=== PATIENT | female | born 1945 | race African-American/Black ===

== ENCOUNTER 2017-12-02 09:27 | Outpatient (CLI) | payer MEDICARE ==
[2017-12-02] MEDS ORDERED: Iopamidol 370 76% 100 ML VIAL ONE (16:29)
== END 2017-12-02 09:28 | disposition home or self-care (01) ==
LOC: BICCT 09:27
PROVIDERS: ATTEND Nurse Practitioner Family
DX: R10.9 Unspecified abdominal pain (principal); R93.3 Abnormal findings on diagnostic imaging of other parts of digestive tract
CPT/HCPCS: 74177

== ENCOUNTER 2017-12-21 07:53 | Outpatient (CLI) | payer MEDICARE | END 2017-12-21 07:54 | disposition home or self-care (01) | LOC: BICMAMMO 07:53 | PROVIDERS: ATTEND Specialist | DX: Z12.31 Encounter for screening mammogram for malignant neoplasm of breast (principal); M81.0 Age-related osteoporosis without current pathological fracture; M85.852 Other specified disorders of bone density and structure, left thigh; Z80.3 Family history of malignant neoplasm of breast | CPT/HCPCS: 77063; 77067; 77080 ==

== ENCOUNTER 2018-04-21 07:46 | Emergency (ER) | payer MEDICARE ==
--- NOTE | 2018-04-21 08:41 | RAD ---
CHEST 1 VIEW: Date: 04/21/18 HISTORY: Dyspnea. COMPARISON: 03/06/17. FINDINGS: Cardiac silhouette magnified by projection. Pulmonary vasculature is unremarkable. Mediastinum is mid line. No confluent air space consolidation or evidence of pneumothorax. Minimal bibasilar atelectasis . IMPRESSION: No active cardiopulmonary abnormalities are demonstrated. POS: [facility]
[2018-04-21] MEDS ORDERED: Ondansetron ODT 4 MG TAB ONE (08:43)
[2018-04-21 09:18] LABS: Bilirubin Negative (Negative); Blood, Urine Negative (Negative); Clarity CLOUDY (Clear); Glucose, Urine (Dipstick) Negative (Negative); Leukocyte Negative (Negative); Nitrite Negative (Negative); Protein, Urine (Dipstick) Trace mg/dL (Neg-Trace); Specific Gravity, Urine 1.018 (1.002-1.036); Urobilinogen 0.2 mg/dL (0.2-1.0); pH, Urine 7.5 (5.0-9.0)
[2018-04-21 09:21] LABS: ALT (SGPT) 29 U/L (8-55); AST (SGOT) 35 U/L (5-34); Albumin 4.2 g/dL (3.4-4.8); Alkaline Phosphatase 76 U/L (40-150); Anion Gap 14 mmol/L (10-20); BUN (Urea Nitrogen) 10 mg/dL (9.8-20.1); Bilirubin, Total 0.9 mg/dL (0.2-1.2); Calc. Creatinine Clearance 0 mL/min (70-130); Calcium 9.1 mg/dL (7.8-10.44); Carbon Dioxide 26 mmol/L (23-31); Chloride 104 mmol/L (98-107); Estimated GFR-MDRD 83; Globulin 4.4 g/dL (2.4-3.5); Glucose 122 mg/dL (83-110); Potassium 4.1 mmol/L (3.5-5.1); Protein, Total 8.6 g/dL (6.0-8.3); Sodium 140 mmol/L (136-145)
[2018-04-21 09:25] LABS: CKMB 2.4 ng/mL (0-6.6); Troponin I Less than 0.010 ng/mL (< 0.028)
[2018-04-21 09:41] LABS: Hemoglobin 15.7 g/dL (12.0-16.0); Lymphocytes 22 % (21-51); MDiff Complete? YES; Mean Corpuscular HGB CONC 33.2 g/dL (32.0-36.0); Mean Corpuscular Hemoglobin 31.4 pg (27.0-31.0); Mean Corpuscular Volume 94.5 fl (81.0-99.0); Mean Platelet Volume 8.9 fL (7.4-10.4); Monocytes 6 % (0-10); Neutrophil 67 % (42-75); PLT Morphology Comment PLT clumps seen-ADEQ; RBC Morphology Normal; Reactive Lymphocytes 5 % (0-10); White Blood Cell (WBC) Count 5.5 thou/uL (4.8-10.8)
== END 2018-04-21 11:07 | disposition home or self-care (01) ==
LOC: ERS 07:46
DX: R11.2 Nausea with vomiting, unspecified (principal); I10 Essential (primary) hypertension; F17.210 Nicotine dependence, cigarettes, uncomplicated
CPT/HCPCS: 36415; 71045; 80053; 81003; 82553; 84443; 84484; 85025; 93005; Q0162

== ENCOUNTER 2018-04-22 12:43 | Emergency (ER) | payer MEDICARE ==
[2018-04-22] MEDS ORDERED: hydrALAZINE 20 MG/ML VIAL ONE ×2 (13:15→13:41)
[2018-04-22] MEDS ORDERED: traMADol HCl 50 MG TAB ONE (13:40)
--- NOTE | 2018-04-22 13:55 | RAD ---
PORTABLE CHEST 1 VIEW: Date: 04/22/18 Time: 1250 hours HISTORY: Headache, hypertension. FINDINGS: Comparison made with exam of 04/21/18. The heart size is borderline. The aorta is tortuous. The lungs are expanded without focal areas of co nsolidation, pneumothorax, or pleural effusions. IMPRESSION: No radiographic evidence of acute cardiopulmonary process. POS: [facility]
[2018-04-22] MEDS ORDERED: hydrALAZINE 10 MG TAB PO SCH (14:00)
--- NOTE | 2018-04-22 14:00 | CT ---
NONCONTRAST CT HEAD: Date: 04/22/18 HISTORY: Headache and hypertension. Pounding headache. COMPARISON: None available. FINDINGS: There is decreased attenuation of the periventricular white matter, which is nonspecific but likely r eflective of chronic small vessel ischemic changes. There is no evidence of an acute cortical infarct ion, hemorrhage, mass effect, or midline shift. Mild cerebral volume loss is present. The ventricular system is normal in size, shape, and position. Visualized paranasal sinuses and mastoid air cells ar e clear. Calvarial structures are intact. IMPRESSION: 1. No acute intracranial abnormality is demonstrated. 2. Chronic small vessel ischemic changes and cerebral volume loss. POS: [facility]
[2018-04-22 14:31] LABS: #Lymphocytes 1.5 thou/uL (1.20-3.40); #Monocytes 0.3 thou/uL (0.11-0.59); #Neutrophils 3.3 thou/uL (1.40-6.50); %Basophils 0.1 % (0.0-1.0); %Eosinophils 0.2 % (0.0-10.0); %Monocytes 6.7 % (0.0-10.0); %Neutrophils 63.1 % (42.0-75.0); Hemoglobin 15.6 g/dL (12.0-16.0); Mean Corpuscular HGB CONC 32.6 g/dL (32.0-36.0); Mean Corpuscular Hemoglobin 30.9 pg (27.0-31.0); Mean Corpuscular Volume 94.6 fl (81.0-99.0); Mean Platelet Volume 7.6 fL (7.4-10.4); Platelet Count 147 thou/uL (130-400); RBC Distribution Width 12.7 % (11.5-14.5); Red Blood Cell (RBC) Count 5.06 mill/uL (4.20-5.40); White Blood Cell (WBC) Count 5.2 thou/uL (4.8-10.8)
[2018-04-22 14:51] LABS: ALT (SGPT) 28 U/L (8-55); AST (SGOT) 33 U/L (5-34); Albumin 4.1 g/dL (3.4-4.8); Alkaline Phosphatase 76 U/L (40-150); Anion Gap 15 mmol/L (10-20); BUN (Urea Nitrogen) 10 mg/dL (9.8-20.1); Bilirubin, Total 1.3 mg/dL (0.2-1.2); Calc. Creatinine Clearance 0 mL/min (70-130); Calcium 9.3 mg/dL (7.8-10.44); Carbon Dioxide 25 mmol/L (23-31); Chloride 102 mmol/L (98-107); Estimated GFR-MDRD 79; Globulin 4.3 g/dL (2.4-3.5); Glucose 90 mg/dL (83-110); Potassium 4.1 mmol/L (3.5-5.1); Protein, Total 8.4 g/dL (6.0-8.3); Sodium 138 mmol/L (136-145)
[2018-04-22 14:56] LABS: CKMB 2.3 ng/mL (0-6.6); Troponin I Less than 0.010 ng/mL (< 0.028)
== END 2018-04-22 15:06 ==
LOC: ERS 12:43
DX: R51 Headache (principal); I10 Essential (primary) hypertension; F17.210 Nicotine dependence, cigarettes, uncomplicated
CPT/HCPCS: 36415; 70450; 71045; 80053; 82553; 84484; 85025; 93005; J0360

== ENCOUNTER 2018-10-11 12:07 | Emergency (ER) | payer MEDICARE | END 2018-10-11 12:26 | disposition left against medical advice (07) | LOC: ERS 12:07 | DX: Z53.21 Procedure and treatment not carried out due to patient leaving prior to being seen by health care provider (principal) ==

== ENCOUNTER 2019-05-29 08:19 | Emergency (ER) | payer MEDICARE ==
[2019-05-29 09:46] LABS: #Basophils 0.1 thou/uL (0.0-0.2); #Lymphocytes 2.2 thou/uL (1.20-3.40); #Monocytes 0.5 thou/uL (0.11-0.59); #Neutrophils 4.2 thou/uL (1.40-6.50); %Basophils 1.3 % (0.0-1.0); %Eosinophils 0.3 % (0.0-10.0); %Lymphocytes 31.4 % (21.0-51.0); %Monocytes 7.1 % (0.0-10.0); %Neutrophils 59.9 % (42.0-75.0); Mean Corpuscular HGB CONC 32.3 g/dL (32.0-36.0); Mean Corpuscular Hemoglobin 31.5 pg (27.0-31.0); Mean Corpuscular Volume 97.3 fL (78.0-98.0); Mean Platelet Volume 8.9 fL (7.4-10.4); Platelet Count 137 thou/uL (130-400); Red Blood Cell (RBC) Count 4.45 mill/uL (4.20-5.40)
[2019-05-29 09:56] LABS: ALT (SGPT) 33 U/L (8-55); AST (SGOT) 33 U/L (5-34); Albumin 3.8 g/dL (3.4-4.8); Alkaline Phosphatase 55 U/L (40-150); Anion Gap 13 mmol/L (10-20); BUN (Urea Nitrogen) 19 mg/dL (9.8-20.1); Bilirubin, Total 0.8 mg/dL (0.2-1.2); Calc. Creatinine Clearance 0 mL/min (70-130); Calcium 9.9 mg/dL (7.8-10.44); Carbon Dioxide 26 mmol/L (23-31); Chloride 104 mmol/L (98-107); Estimated GFR-MDRD 73; Globulin 3.7 g/dL (2.4-3.5); Glucose 92 mg/dL (83-110); Lipase 29 U/L (8-78); Potassium 3.7 mmol/L (3.5-5.1); Protein, Total 7.5 g/dL (6.0-8.3); Sodium 139 mmol/L (136-145)
--- NOTE | 2019-05-29 10:41 | CT ---
CT abdomen and pelvis with IV contrast HISTORY: Left upper quadrant pain. COMPARISON: 12/02/2017. FINDINGS: Mild linear atelectasis at the lung bases. Gallbladder surgically absent. Common bile duct now upper limits of normal at 1.1 cm. No filling defects are apparent. The spleen and kidneys have a normal appearance. No enlarged lymph nodes or free fluid. Small hiatal hernia. Urinary bladder is intact. Prominent degenerative changes of the lumbar spine. Small pocket of gas lies immediately posterior to the L4-5 disc space. IMPRESSION: No acute abnormalities of the left upper quadrant to explain pain. Status post cholecystectomy. Chronic-type findings are stable. Small hiatal hernia. Posterior disc herniation at the L4-5 level of the lumbar spine.
[2019-05-29] MEDS ORDERED: ISOVUE-370 76%-LOCM 1 ML ONE (13:40)
== END 2019-05-29 10:49 | disposition home or self-care (01) ==
LOC: ERS 08:19
DX: R07.81 Pleurodynia (principal); R16.0 Hepatomegaly, not elsewhere classified; I10 Essential (primary) hypertension; Z79.899 Other long term (current) drug therapy
CPT/HCPCS: 36415; 74177; 80053; 83690; 85025; Q9966

== ENCOUNTER 2019-07-05 15:37 | Emergency (ER) | payer MEDICARE ==
--- NOTE | 2019-07-05 16:05 | RAD ---
Exam: Chest one view HISTORY:Chest pain Comparison: 04/22/2018 FINDINGS: Cardiac silhouette: Normal Aorta: Atherosclerosis of the aortic knob Pulmonary vessels: Slightly prominent Costophrenic angles: Clear LUNGS: Diffuse hazy opacities, without consolidation/air bronchograms Pneumothorax: None Osseous abnormalities: None IMPRESSION: 1. Diffuse hazy opacities without consolidation or bronchograms. There is a presumed component of vol ume overload. Possibility of a infiltrate cannot be excluded. Better evaluation with a 2 view chest radiograph is recommended.
[2019-07-05 16:26] LABS: #Basophils 0.1 thou/uL (0.0-0.2); #Eosinphils 0.1 thou/uL (0.0-0.7); #Lymphocytes 2.1 thou/uL (1.20-3.40); #Monocytes 0.5 thou/uL (0.11-0.59); %Eosinophils 1.3 % (0.0-10.0); %Lymphocytes 36.2 % (21.0-51.0); %Monocytes 8.9 % (0.0-10.0); %Neutrophils 52.6 % (42.0-75.0); Hemoglobin 13.4 g/dL (12.0-16.0); Mean Corpuscular HGB CONC 33.4 g/dL (32.0-36.0); Mean Corpuscular Hemoglobin 32.5 pg (27.0-31.0); Mean Corpuscular Volume 97.4 fL (78.0-98.0); Mean Platelet Volume 7.5 fL (7.4-10.4); Platelet Count 160 thou/uL (130-400); RBC Distribution Width 11.8 % (11.5-14.5); Red Blood Cell (RBC) Count 4.12 mill/uL (4.20-5.40); White Blood Cell (WBC) Count 5.8 thou/uL (4.8-10.8)
[2019-07-05 16:46] LABS: ALT (SGPT) 33 U/L (8-55); AST (SGOT) 33 U/L (5-34); Albumin 3.9 g/dL (3.4-4.8); Alkaline Phosphatase 64 U/L (40-150); Anion Gap 13 mmol/L (10-20); BUN (Urea Nitrogen) 14 mg/dL (9.8-20.1); Bilirubin, Total 0.5 mg/dL (0.2-1.2); CK (CPK) 107 U/L (29-168); Calc. Creatinine Clearance 0 mL/min (70-130); Calcium 8.9 mg/dL (7.8-10.44); Carbon Dioxide 27 mmol/L (23-31); Chloride 106 mmol/L (98-107); Estimated GFR-MDRD 72; Globulin 3.3 g/dL (2.4-3.5); Glucose 115 mg/dL (83-110); Lipase 51 U/L (8-78); Potassium 3.8 mmol/L (3.5-5.1); Protein, Total 7.2 g/dL (6.0-8.3); Sodium 142 mmol/L (136-145)
[2019-07-05] MEDS ORDERED: Morphine 4 MG/ML VIAL ONE (16:55)
[2019-07-05] MEDS ORDERED: Aspirin Chewable 81 MG TAB ONE (16:55)
[2019-07-05] MEDS ORDERED: Morphine 4 MG/ML VIAL SLOW IVP SCH (17:00)
[2019-07-05] MEDS ORDERED: Aspirin 325 MG TAB PO SCH (17:15)
[2019-07-05 17:29] LABS: Bacteria/HPF None Seen HPF (None Seen); Bilirubin Negative (Negative); Blood, Urine Negative (Negative); Clarity Clear (Clear); Glucose, Urine (Dipstick) Normal (Negative); Leukocyte 75 Leu/uL (Negative); Nitrite Negative (Negative); Protein, Urine (Dipstick) Negative (Neg-Trace); RBC/HPF 0-3 HPF (0-3); Squamous Epithelial 0-3 HPF (0-3)
[2019-07-05 17:39] LABS: WBC/HPF 0-3 HPF (0-3)
--- NOTE | 2019-07-08 11:06 | EKG ---
Test Reason : Blood Pressure : / mmHG Vent. Rate : 068 BPM Atrial Rate : 068 BPM P-R Int : 160 ms QRS Dur : 094 ms QT Int : 428 ms P-R-T Axes : 072 048 068 degrees QTc Int : 455 ms Normal sinus rhythm Normal ECG Confirmed by DOMINIQUE VARGAS ([id number]), state editor ALEIDA CORTES ([id number]) on 07/08/2019 11:05:52 AM Referred By: Confirmed By:DOMINIQUE VARGAS
== END 2019-07-05 18:06 | disposition left against medical advice (07) ==
LOC: ERS 15:37
DX: R07.9 Chest pain, unspecified (principal); R10.12 Left upper quadrant pain; I10 Essential (primary) hypertension; Z79.899 Other long term (current) drug therapy
CPT/HCPCS: 36415; 71045; 80053; 81003; 81015; 82550; 83690; 83880; 84484; 85025; 85379; 93005; 96374; J2270

== ENCOUNTER 2019-10-20 15:17 | Outpatient (CLI) | payer MEDICARE ==
--- NOTE | 2019-10-20 16:04 | BD ---
EXAM: Bone densitometry using DEXA HISTORY: 74 yo female. Screening for postmenopausal osteoporosis FINDINGS: L1--bone mineral density 0.861 g/sq cm; T score -1.2 ; Z score 1.0 L2--bone mineral density 1.121 g/sq cm; T score 0.8 ; Z score 3.2 L3--bone mineral density 1.244 g/sq cm; T score 1.5 ; Z score 4.0 L4--bone mineral density 1.027 g/sq cm; T score -0.3 ; Z score 2.3 Total L1-L4--bone mineral density 1.062 g/sq cm; T score 0.1 ; Z score 2.5 Left femoral neck--bone mineral density0.747; T score -0.9 ; Z score 1.2 Total proximal left femur--bone mineral density 0.973; T score 0.3 ; Z score 2.0 IMPRESSION: Normal BMD.
--- NOTE | 2019-10-20 16:43 | MMO ---
Bilateral MAMMO Bilat Screen [facility]. CLINICAL HISTORY: Patient is 74 years old and is seen for screening. The patient has the following family history of breast cancer: mother, at age 84. The patient has no personal history of cancer. The patient has a history of bilateral Stereotatic Biopsy in 1998 and right Excisional Biopsy in over 25 years a - benign. VIEWS: The views performed were: bilateral craniocaudal with tomosynthesis and bilateral mediolateral oblique with tomosynthesis. FILMS COMPARED: The present examination has been compared to prior imaging studies performed at [facility] on 08/26/2007, 08/20/2009, 10/14/2010 and 12/21/2017. This study has been interpreted with the assistance of computer-aided detection. MAMMOGRAM FINDINGS: There are scattered fibroglandular densities. There are stable benign appearing calcifications seen in both breasts. There are no suspicious masses, suspicious calcifications, or new areas of architectural distortion. IMPRESSION: THERE IS NO MAMMOGRAPHIC EVIDENCE OF MALIGNANCY. A ROUTINE FOLLOW-UP MAMMOGRAM IN 1 YEAR IS RECOMMENDED. THE RESULTS OF THIS EXAM WERE SENT TO THE PATIENT. ACR BI-RADS Category 2 - Benign finding MAMMOGRAPHY NOTE: 1. A negative mammogram report should not delay a biopsy if a dominant of clinically suspicious mass is present. 2. Approximately 10% to 15% of breast cancers are not detected by mammography. 3. Adenosis and dense breasts may obscure an underlying neoplasm. Reported by: RIC TERRELL MD Electonically Signed: [id number]
== END 2019-10-20 15:18 | disposition home or self-care (01) ==
LOC: BICMAMMO 15:17
PROVIDERS: ATTEND Nurse Practitioner Family
DX: Z12.31 Encounter for screening mammogram for malignant neoplasm of breast (principal); Z13.820 Encounter for screening for osteoporosis; Z91.89 Other specified personal risk factors, not elsewhere classified; Z80.3 Family history of malignant neoplasm of breast
CPT/HCPCS: 77063; 77067; 77080

== ENCOUNTER 2022-04-24 13:50 | Outpatient (CLI) | payer MEDICARE | END 2022-04-24 13:51 | disposition home or self-care (01) | LOC: BICMAMMO 13:50 | PROVIDERS: ATTEND Student in an Organized Health Care Education/Training Program | DX: Z12.31 Encounter for screening mammogram for malignant neoplasm of breast (principal); Z80.3 Family history of malignant neoplasm of breast; Z91.89 Other specified personal risk factors, not elsewhere classified | CPT/HCPCS: 77063; 77067 ==

== ENCOUNTER 2022-07-14 09:43 | Outpatient (CLI) | payer MEDICARE | END 2022-07-14 09:44 | disposition home or self-care (01) | LOC: SCSMRI 09:43 | PROVIDERS: ATTEND Physician Assistant Medical | DX: K86.89 Other specified diseases of pancreas (principal); K21.00 Gastro-esophageal reflux disease with esophagitis, without bleeding; R10.12 Left upper quadrant pain; R82.90 Unspecified abnormal findings in urine; K83.8 Other specified diseases of biliary tract; N28.1 Cyst of kidney, acquired | CPT/HCPCS: 74183; 82565 ==

== ENCOUNTER 2022-07-17 10:33 | Outpatient (CLI) | payer MEDICARE | END 2022-07-17 10:34 | disposition home or self-care (01) | LOC: BICRAD 10:33 | PROVIDERS: ATTEND Physician Assistant Medical | DX: K59.09 Other constipation (principal); R10.12 Left upper quadrant pain; R07.89 Other chest pain ==

== ENCOUNTER 2023-06-09 12:48 | Outpatient (CLI) | payer OTHER ==
[~2023-06-09 12:48] MED LIST: Iopamidol 370 76% 100 ML VIAL ONE
== END 2023-06-09 12:49 | disposition home or self-care (01) ==
LOC: BICCT 12:48
PROVIDERS: ATTEND Physician Assistant Medical
DX: R10.12 Left upper quadrant pain (principal); B18.2 Chronic viral hepatitis C; K74.60 Unspecified cirrhosis of liver; L90.5 Scar conditions and fibrosis of skin
CPT/HCPCS: 74160; 82565

== ENCOUNTER 2023-09-06 07:51 | Outpatient (CLI) | payer OTHER | END 2023-09-06 07:52 | disposition home or self-care (01) | LOC: MRI 07:51 | PROVIDERS: ATTEND Family Medicine | DX: R41.3 Other amnesia (principal); I67.82 Cerebral ischemia; R90.89 Other abnormal findings on diagnostic imaging of central nervous system | CPT/HCPCS: 70551 ==

== ENCOUNTER 2023-10-27 12:56 | Outpatient (CLI) | payer OTHER | END 2023-10-27 12:57 | disposition home or self-care (01) | LOC: BICULT 12:56 | PROVIDERS: ATTEND Physician Assistant Medical | DX: B18.2 Chronic viral hepatitis C (principal); K21.00 Gastro-esophageal reflux disease with esophagitis, without bleeding; K74.60 Unspecified cirrhosis of liver; Z90.49 Acquired absence of other specified parts of digestive tract | CPT/HCPCS: 76705 ==